=== PATIENT | female | born 1940 | race Caucasian/White ===

== ENCOUNTER 2016-08-23 09:13 | Outpatient (CLI) | payer MEDICARE | END 2016-08-23 10:52 | LOC: D.MAMMO 09:13 | DX: Z12.31 Encounter for screening mammogram for malignant neoplasm of breast (principal) ==

== ENCOUNTER → 2018-06-08 09:06 | Outpatient (CLI) | payer MEDICARE ==
[~2018-06-08 09:06] MED LIST: ASPIRIN81 MG PO; COZAAR25 MG PO; ELIQUIS5 MG PO; HYDROCHLOROTH12.5 M1 PO; PROTONIX40 MG PO; SINGULAIR10 MG PO
[2018-06-09 12:54] VITALS: BMI 32.8
== END | disposition home or self-care (01) ==
LOC: D.CT 09:06
PROVIDERS: ATTEND Internal Medicine Gastroenterology
DX: R10.9 Unspecified abdominal pain (principal); K62.5 Hemorrhage of anus and rectum

== ENCOUNTER 2018-06-08 13:34 | Inpatient (IN) | payer MEDICARE ==
[~2018-06-08] VITALS: Ht 156.2 cm; Wt 80.1 kg
[2018-06-08] VITALS (11 sets, daily range): BP systolic 139–179; BP diastolic 52–88; BMI 33.7
[2018-06-08] MEDS ORDERED: ASPIRIN81 MG PO (13:42)
[2018-06-08] MEDS ORDERED: COZAAR25 MG PO (13:42)
[2018-06-08] MEDS ORDERED: HYDROCHLOROTH12.5 M1 PO (13:43)
[2018-06-08] MEDS ORDERED: SINGULAIR10 MG PO (13:43)
[2018-06-08 14:33] LABS: BASOPHILS 0.3 % (0-2); EOSINOPHILS 4.2 % (0-7); HEMATOCRIT 41.1 % (36.0-48.0); HEMOGLOBIN 13.2 g/dL (12-16); IMMATURE GRANULOCYTES 0.3 % (0-5); LYMPHOCYTES 24.4 % (15-50); MCHC 32.1 g/dL (31.0-37.0); MCV 81.1 fL (80.0-100.0); MEAN PLATELET VOLUME 10.7 fL (7.4-10.4); MONOCYTES 5.7 % (2-11); NEUTROPHILS 65.1 % (40-80); PLATELET COUNT 211 10x3/uL (130-400); RBC 5.07 10x6/uL (4.00-5.40); RDW 14.4 % (11.5-14.5); WBC 6.1 10x3/uL (4.8-10.8)
[2018-06-08 14:45] LABS: INR 0.96 (0.85-1.17); PROTIME 12.3 SECONDS (11.6-15.0)
[2018-06-08 14:46] LABS: APTT 27.3 SECONDS (22.8-39.4)
[2018-06-08 14:47] LABS: D-DIMER-QUANTITATIVE 1.42 ug/mLFEU (0.20-0.54)
[2018-06-08 14:48] LABS: ALBUMIN 3.9 g/dL (3.4-5.0); BILIRUBIN - TOTAL 0.34 mg/dL (0.2-1.3); CALCIUM 8.9 mg/dL (8.5-10.1); CARBON DIOXIDE 29.3 mmol/L (21.0-32.0); CREATININE - SERUM 1.2 mg/dL (0.6-1.3); POTASSIUM - SERUM 3.3 mmol/L (3.5-5.1); PROTEIN - SERUM 7.6 g/dL (6.4-8.2)
--- NOTE | 2018-06-08 15:57 | MORECARE ---
CASE MANAGEMENT DISCHARGE SUMMARY PATIENT: CAMILO OVALLES UNIT: [id number] ADM DATE: 06/08/18 AGE: 77 : 41 SEX: F ROOM/BED: D.E10 AUTHOR: KELLY DAMON PHYSICIAN: REFERRING PHYSICIAN: CARI CONTRERAS MD DATE OF SERVICE: 06/08/18 Discharge Plan Patient Name: CAMILO OVALLES [facility] [facility] 1940 Planned Disposition: Home Anticipated Discharge Date: 06/10/18 Discharge Date: Expected LOS: 2 Initial Reviewer: [email or web address] Initial Review Date: 06/08/2018 Generated: 06/08/18 4:57 pm Patient Name: CAMILO OVALLES Page [id number] at 1557 All edits/amendments must be made on the electronic document DICTATION DATE: 06/08/181556 DIAMOND SIZER AND SORTER: ALVAREZ 06/08/181556 RPT#: [id number] DC DATE: STATUS: ADM IN [facility] [address] [place] [address] END OF REPORT
--- NOTE | 2018-06-08 16:04 | MORECARE ---
CASE MANAGEMENT DISCHARGE SUMMARY PATIENT: CAMILO OVALLES UNIT: [id number] ADM DATE: 06/08/18 AGE: 77 : 41 SEX: F ROOM/BED: D.2311 AUTHOR: KELLY DAMON PHYSICIAN: REFERRING PHYSICIAN: CARI CONTRERAS MD DATE OF SERVICE: 06/08/18 Discharge Plan Patient Name: CAMILO OVALLES Facility: [facility]:[place] : 1940 Planned Disposition: Home Anticipated Discharge Date: 06/10/18 Discharge Date: Expected LOS: 2 Initial Reviewer: [email or web address] Initial Review Date: 06/08/2018 Generated: 06/08/18 5:04 pm DCP- Discharge Planning Updated by [email or web address]: Zohreh Bowling on 06/08/18 3:[address] Patient Name: CAMILO OVALLES Admission Status: ER Accout number: [id number] Admission Date: 06-08-2018 : 1940 Admission Diagnosis: Attending: CARI CONTRERAS Current LOS: 1 Anticipated DC Date: 06-10-2018 Planned Disposition: Home Primary Insurance: MEDICARE A & B Discharge Planning Comments: CM met with patient to complete initial dc planning assessment. CM educated patient on the CM role and verbal consent given by patient to complete assessment. Patient lives at home alone independently. At discharge patient plans to return home alone and feels this is a safe discharge. CM discussed availability of home health, rehab services, and medical equipment. Patient denied known discharge needs at this time. CM will continue to follow and will assist as needed with dc plans/needs. Cylinder Press Feeder: Zohreh Bowling RN, [facility] DCPIA - Discharge Planning Initial Assessment Updated by [email or web address]: Zohreh Bowling on 06/08/18 3:59 pm * Is the patient Alert and Oriented? Yes * How many steps to enter\exit or inside your home? 11 * PCP Dr. Shafer * Preadmission Environment Home Alone * ADLs Independent * Equipment None * List name and contact numbers for known caregivers / representatives who currently or will assist patient after discharge: Sukhwinder Davidmode ramires A - [phone] Winnie Pettit [facility] - [phone] * Verbal permission to speak to the caregivers and representatives has been obtained from the patient. Yes * Community resources currently utilized None * Additional services required to return to the preadmission environment? No * Can the patient safely return to the preadmission environment? Yes * Has this patient been hospitalized within the prior 30 days at any hospital? No Last DP export: 06/08/18 2:57 p Patient Name: CAMILO OVALLES Page [phone] at 1604 All edits/amendments must be made on the electronic document DICTATION DATE: 06/08/18 1604 CORPORATE BOND TRADER: ALVAREZ 06/08/18 1604 RPT#: [id number] DC DATE: STATUS: ADM IN [facility] [address] [place] [address] END OF REPORT
--- NOTE | 2018-06-08 17:00 | NUR ---
PATIENT RECEIVED FROM ER VIA WHEELCHAIR, AMBULATORY TO BED, ALERT AND ORIENTED X 4, NO SOB, NO COMPLAINTS, WAS AT WORK WHEN TOLD TO REPORT TO ER DUE TO RESULTS OF CTA SHOWING BILATERAL LOWER LOBE PE'S. STATES HAS HAD NO SYMPTOMS. HAD COLONOSCOPY LAST FRIDAY AND DR. GIBBS HAD ORDERED CTA DUE TO NOT BEING ABLE TO SEE EVERYTHING SHE NEEDED DURING THE COLONOSCOPY. IV INFUSING TO LEFT HAND NS AT 75 CC/HR WITH NO S/S OF INFILTRATION. VSS. HEAD TO TOE ASSESSMENT COMPLETED.
--- NOTE | 2018-06-08 17:20 | NUR ---
DR. GIBBS AT ROOM UPDATED AND EXAMINES PATIENT.
--- NOTE | 2018-06-08 17:40 | NUR ---
PATIENT GIVEN DINNER TRAY. VSS.
--- NOTE | 2018-06-08 17:48 | NUR ---
DR. CONTRERAS AT ROOM UPDATED AND EXAMINES PATIENT.
--- NOTE | 2018-06-08 18:18 | NUR ---
PATIENT SITTING ON SIDE OF BED TALKING ON CELL PHONE. VSS. ATE 100% OF DINNER.
--- NOTE | 2018-06-08 18:36 | NUR ---
PATIENT UP TO BEDSIDE COMMODE.
--- NOTE | 2018-06-08 20:41 | NUR ---
PT OOB TO BEDSIDE COMMODE, VOID 250ML CLEAR YELLOW URINE
--- NOTE | 2018-06-08 21:30 | NUR ---
DAUGHTER AT BEDSIDE
[2018-06-09] VITALS (14 sets, daily range): BP systolic 126–157; BP diastolic 52–81; Ht 156.2 cm; Wt 80.1 kg
[2018-06-09 05:05] LABS: BASOPHILS 0.7 % (0-2); EOSINOPHILS 5.8 % (0-7); HEMATOCRIT 37.6 % (36.0-48.0); IMMATURE GRANULOCYTES 0.7 % (0-5); LYMPHOCYTES 37.3 % (15-50); MCH 25.8 pg (26.0-34.0); MCHC 31.9 g/dL (31.0-37.0); MCV 80.7 fL (80.0-100.0); MEAN PLATELET VOLUME 10.9 fL (7.4-10.4); MONOCYTES 7.2 % (2-11); NEUTROPHILS 48.3 % (40-80); PLATELET COUNT 189 10x3/uL (130-400); RBC 4.66 10x6/uL (4.00-5.40); RDW 14.2 % (11.5-14.5); WBC 5.5 10x3/uL (4.8-10.8)
[2018-06-09 05:32] LABS: ANION GAP 13.9 mmol/L (8-16); BILIRUBIN - TOTAL 0.22 mg/dL (0.2-1.3); CALCIUM 8.1 mg/dL (8.5-10.1); CARBON DIOXIDE 24.4 mmol/L (21.0-32.0); CREATININE - SERUM 0.9 mg/dL (0.6-1.3); MAGNESIUM - SERUM 1.7 mg/dL (1.8-2.4); POTASSIUM - SERUM 3.3 mmol/L (3.5-5.1); PROTEIN - SERUM 6.2 g/dL (6.4-8.2)
[2018-06-09 05:33] LABS: ALBUMIN 2.9 g/dL (3.4-5.0)
--- NOTE | 2018-06-09 07:15 | NUR ---
REPORT RECEIVED. ASSESSMENT COMPLETE PER FLOW SHEET. VSS. NO NEW CAHNGES WILL CONTINUE TO MONITOR
--- NOTE | 2018-06-09 09:39 | NUR ---
DR DYE AT BEDSIDE. GIVEN UDPATE
--- NOTE | 2018-06-09 14:15 | NUR ---
KOMAL LEVY CALLED ROOM [id number]
--- NOTE | 2018-06-09 14:30 | NUR ---
ATTEMPT TO CALL REPORT. STATED ROOM WAS NOT READY
--- NOTE | 2018-06-09 16:15 | NUR ---
ROOM STILL NOT READY AT THIS TIME. WILL CALL BACK IN 15 MINUTES
--- NOTE | 2018-06-09 16:38 | NUR ---
DR MORSE AT BEDSIDE. GIVEN UPDATE
--- NOTE | 2018-06-09 17:48 | NUR ---
RECEIVED PT FROM ICU ACCOMPANIED BY HOSPITAL STAFF VIA WHEELCHAIR. PT ALERT AND ORIENTED. UP AD SCOTT. ALLERGIES TO SULFA, TURKEY, SHRIMP. PT ADMITTED WITH BILATERAL PE, RIGHT RENAL LESION, ADRENAL MASS AND NODULE IN SIGMOID COLON. POSSIBLE BIOPSY. IV TO LEFT FOREARM, NS INFUSING @ 75. SITE PATENT WITHOUT REDNESS OR SWELLING. FAMILY AT BEDSIDE. PT DENIES ANYTHING FURTHER AT THIS TIME. CALL LIGHT IN REACH. WILL CONTINUE TO MONITOR.
--- NOTE | 2018-06-09 18:48 | NUR ---
PT TAKING SHOWER. NO C/O PAIN. NO S/S OF ACUTE DISTRESS NOTED. PT DENIES ANYTHING FURTHER AT THIS TIME. CALL LIGHT IN REACH. FAMILY AT BEDSIDE. WILL CONTINUE TO MONITOR.
--- NOTE | 2018-06-09 19:00 | NUR ---
PT ALERT AND ORIENTED. DAUGHTER AT BEDSIDE. NO COMPLAINTS OF PAIN. LEFT FOREARM IV INFUSING AT 75. CPOC.
[2018-06-10] VITALS (11 sets, daily range): BP systolic 129–190; BP diastolic 59–82
--- NOTE | 2018-06-10 04:08 | NUR ---
I have reviewed this patient and I concur with the Shift Assessment completed by the Licensed Practical Nurse today this shift.
[2018-06-10 05:00] LABS: BASOPHILS 0.2 % (0-2); EOSINOPHILS 5.6 % (0-7); HEMATOCRIT 38.1 % (36.0-48.0); HEMOGLOBIN 12.1 g/dL (12-16); IMMATURE GRANULOCYTES 0.8 % (0-5); LYMPHOCYTES 39.1 % (15-50); MCH 25.7 pg (26.0-34.0); MCHC 31.8 g/dL (31.0-37.0); MCV 80.9 fL (80.0-100.0); MEAN PLATELET VOLUME 10.8 fL (7.4-10.4); MONOCYTES 6.2 % (2-11); NEUTROPHILS 48.1 % (40-80); PLATELET COUNT 205 10x3/uL (130-400); RBC 4.71 10x6/uL (4.00-5.40); RDW 14.4 % (11.5-14.5); WBC 5.2 10x3/uL (4.8-10.8)
[2018-06-10 05:30] LABS: ALBUMIN 3.2 g/dL (3.4-5.0); ALKALINE PHOSPHATASE 80 U/L (46-116); ALT (SGPT) 38 U/L (10-68); BILIRUBIN - TOTAL 0.24 mg/dL (0.2-1.3); CALC OSMOLALITY 281 mosm/kg (275-300); CALCIUM 8.3 mg/dL (8.5-10.1); CARBON DIOXIDE 24.3 mmol/L (21.0-32.0); CHLORIDE - SERUM 107 mmol/L (98-107); CREATININE - SERUM 0.7 mg/dL (0.6-1.3); GLUCOSE 102 mg/dL (74-106); MAGNESIUM - SERUM 2.1 mg/dL (1.8-2.4); POTASSIUM - SERUM 3.4 mmol/L (3.5-5.1); PROTEIN - SERUM 6.4 g/dL (6.4-8.2); SODIUM 142 mmol/L (136-145); eGFR NON AFRICAN AMERICAN 86 mL/min (90-120)
[2018-06-10 05:31] LABS: UREA NITROGEN 10 mg/dL (7-18)
[2018-06-10 07:30] LABS: FOLATE (FOLIC ACID) - SERUM >20.0 ng/mL (>3.0)
--- NOTE | 2018-06-10 07:30 | NUR ---
PT RESTING IN BED WITH EYES CLOSED. RESPIRATIONS ARE EVEN AND UNLABORED. PT IS EASILY AROUSED WITH VERBAL STIMULATION. PT MADISON PRESENCE OF PAIN AT THIS TIME. PT DENIES PRESENCE OF N/V. IV INFUSING TO LEFT FOREARM WITHOUT DIFFICULTY. IV INSERTION SITE WITHOUT REDNESS AND PT DENIES DISCOMFORT. BED IS IN THE LOWEST POSITION. CALL LIGHT AND BEDSIDE TABLE ARE WITHIN REACH. PT DENIES FURTHER NEEDS AT THIS TIME. WILL CONT TO MONITOR.
[2018-06-10 08:01] LABS: INR 1.02 (0.85-1.17); PROTIME 12.9 SECONDS (11.6-15.0)
[2018-06-10 08:02] LABS: APTT 38.3 SECONDS (22.8-39.4)
--- NOTE | 2018-06-10 08:04 | NUR ---
PT PLACED NPO PER ORDER FOR PROCEDURE. PT EDUCATED ON MEANING ON NPO. PT VERBALIZES UNDERSTANDING. PT DENIES FURTHER NEEDS. BED IS IN THE LOWEST POSITION. CALL LIGHT AND BEDSIDE TABLE ARE WITHIN REACH. WILL CONT TO MONITOR.
--- NOTE | 2018-06-10 09:42 | NUR ---
CONSENTS COVERED AND SIGNED FOR CT GUIDED PROCEDURE AND CONSENTS COVERED AND SIGNED FOR FLEX. SIGMOIDOSCOPY WITH DR GIBBS ON 06/11/2018. PT DENIES FURTHER QUESTIONS AND/OR CONCERNS AT THIS TIME. SIGNED CONSENTS PLACED IN PT CHART.
--- NOTE | 2018-06-10 14:29 | NUR ---
PT OFF FLOOR VIA BED FOR PROCEDURE.
--- NOTE | 2018-06-10 15:36 | NUR ---
PT RETURNED TO ROOM VIA BED FROM PROCEDURE. PT IS AAO X4. FAMILY IS AT BEDSIDE. DRESSING NOTED TO RIGHT FLANK/BACK THAT IS C/D/I. PT DENIES PRESENCE OF PAIN. PT DENIES PRESENCE OF N/V. SEE FLOWSHEET FOR VITALS. PT EDUCATED ON BEDREST X 2 HOURS. PT VERBALIZES UNDERSTANDING. BED IS IN THE LOWEST POSITION. CALL LIGHT AND BEDSIDE TABLE ARE WITHIN REACH. WILL CONT TO MONITOR.
[2018-06-11 04:00] VITALS: BP 157/67
--- NOTE | 2018-06-11 04:46 | NUR ---
PT IN BED IN LOW FOWLERS POSITION. REPIRATIONS EVEN AND UNLABORED. VITAL SIGNS STABLE AND AFEBRILE. NO VISUAL CUES OF DISTRESS NOTED. DENIES ANY OTHER NEEDS AT THIS TIME. BED LOW, SIDE RAILS UP X2. CALL LIGHT IN REACH. WILL CONTINUE TO MONITOR.
[2018-06-11 05:01] LABS: BASOPHILS 0.5 % (0-2); EOSINOPHILS 3.7 % (0-7); IMMATURE GRANULOCYTES 0.2 % (0-5); MCH 25.3 pg (26.0-34.0); MCHC 31.6 g/dL (31.0-37.0); MCV 80.2 fL (80.0-100.0); MEAN PLATELET VOLUME 10.2 fL (7.4-10.4); NEUTROPHILS 66.6 % (40-80); PLATELET COUNT 185 10x3/uL (130-400); RBC 4.74 10x6/uL (4.00-5.40); RDW 14.3 % (11.5-14.5)
[2018-06-11 05:05] LABS: WBC 6.6 10x3/uL (4.8-10.8)
[2018-06-11 05:18] LABS: ALBUMIN 3.1 g/dL (3.4-5.0); ALKALINE PHOSPHATASE 82 U/L (46-116); ALT (SGPT) 38 U/L (10-68); BILIRUBIN - TOTAL 0.37 mg/dL (0.2-1.3); CALC OSMOLALITY 276 mosm/kg (275-300); CALCIUM 8.2 mg/dL (8.5-10.1); CARBON DIOXIDE 27.4 mmol/L (21.0-32.0); CHLORIDE - SERUM 106 mmol/L (98-107); CREATININE - SERUM 0.7 mg/dL (0.6-1.3); GLUCOSE 100 mg/dL (74-106); MAGNESIUM - SERUM 2.2 mg/dL (1.8-2.4); POTASSIUM - SERUM 3.5 mmol/L (3.5-5.1); PROTEIN - SERUM 6.3 g/dL (6.4-8.2); SODIUM 140 mmol/L (136-145); UREA NITROGEN 8 mg/dL (7-18); eGFR NON AFRICAN AMERICAN 86 mL/min (90-120)
--- NOTE | 2018-06-11 07:40 | NUR ---
PT IS SITTING UP ON SIDE OF BED. RESPIRATIONS ARE EVEN AND UNLABORED. PT DENIES PRESENCE OF PAIN AND/OR N/V AT THIS TIME. BED IS IN THE LOWEST POSITION. CALL LIGHT AND BEDSIDE TABLE ARE WITHIN REACH. ELECTROLYTE PROTOCOL ENFORCED. SEE EMAR. PT IS UNABLE TO TOLERATE K+ INFUSION @ 100ML/HR. SLOWED INFUSION RATE TO 50ML/HR. PT IS TOLERATING WELL AT THIS TIME. PT DENIES FURTHER NEEDS. WILL CONT TO MONITOR.
--- NOTE | 2018-06-11 08:45 | NUR ---
PT RETURNED TO ROOM FROM PROCEDURE. PT IS AAO X 4. PT DENIES PRESENCE OF PAIN. SEE FLOWSHEET FOR VITALS. BED IS IN THE LOWEST POSITION. CALL LIGHT AND BEDSIDE TABLE ARE WITHIN REACH. PT DENIES FURTHER NEEDS. WILL CONT TO MONITOR.
[2018-06-11 10:11] VITALS: BP 139/62
[2018-06-11 11:17] LABS: LUPUS - INTERPRETATION Comment: (()); LUPUS - THROMBIN TIME 22.6 sec (0.0-23.0); LUPUS - dRVVT 33.7 sec (0.0-47.0); PTT-LA 43.9 sec (0.0-51.9)
--- NOTE | 2018-06-11 12:20 | NUR ---
PT IS OFF FLOOR VIA WHEELCHAIR FOR IMAGING.
--- NOTE | 2018-06-11 13:02 | NUR ---
NUTRITION F/U CHART REVIEWED, PT CURRENTLY OOR FOR PROCEDURE. NPO AT THIS TIME. WILL PROVIDE DIET WHEN RESUMED, HONOR FOOD PREFERENCES. RD FOLLOWING
--- NOTE | 2018-06-11 16:44 | NUR ---
PIV REMOVED PER PT REQUEST. CATHETER TIP INTACT. DRESSING APPLIED. PT REQUESTS TO WAIT ON RE-SITING PIV AT THIS TIME.
--- NOTE | 2018-06-11 16:45 | NUR ---
CORBIN EMERSON APRN NOTIFIED OF PT REQUEST TO NOT RESITE IV. ORDERS RECD TO CHECK K+ LEVEL PER PROTOCOL FROM COMPLETION OF LAST K+ RIDER INFUSION. ORDERS PLACED.
[2018-06-11 17:34] VITALS: BP 175/77
--- NOTE | 2018-06-11 18:53 | NUR ---
DR ANTONIO AT BED SIDE WITH CONCERNS RELATED TO PT BLOOD PRESSURE AND BLOOD PRESSURE MEDICATION. BEDSIDE BLOODPRESSURE AT THIS TIME WAS 170/72 IN THE RIGHT ARM LAYING POSITION. PAGE PLACED TO JAYCEE GARCIA TO NOTIFY.
--- NOTE | 2018-06-11 19:40 | NUR ---
ALERT AND AWAKE DRSG REMOVED FROM BACK ON RT SIDE VERY LITTLE OLD DRAINAGE NOTED LCTA AND PT DENIES PAIN PULSES INTACT SKIN WARM AND DRY FAMILY IS PRESENT BED LOW WITH CALL LIGHT IN PLACE
[2018-06-11 20:00] VITALS: BP 151/70
--- NOTE | 2018-06-11 22:27 | NUR ---
NOTED POTASIUM AT 3.4 SO 40 MEQ OF KCL GIVEN NOW AND WILL RECHECK K+ WITH AM LAB
[2018-06-12] VITALS: BP 125/54
--- NOTE | 2018-06-12 03:15 | NUR ---
I have reviewed this patient and I concur with the Shift Assessment completed by the Licensed Practical Nurse today this shift.
[2018-06-12 04:00] VITALS: BP 136/59
[2018-06-12 05:08] LABS: BASOPHILS 0.4 % (0-2); EOSINOPHILS 5.7 % (0-7); HEMATOCRIT 36.7 % (36.0-48.0); HEMOGLOBIN 11.7 g/dL (12-16); IMMATURE GRANULOCYTES 0.4 % (0-5); LYMPHOCYTES 30.5 % (15-50); MCH 25.5 pg (26.0-34.0); MCHC 31.9 g/dL (31.0-37.0); MCV 80.1 fL (80.0-100.0); MEAN PLATELET VOLUME 10.4 fL (7.4-10.4); MONOCYTES 8.3 % (2-11); NEUTROPHILS 54.7 % (40-80); PLATELET COUNT 184 10x3/uL (130-400); RBC 4.58 10x6/uL (4.00-5.40); RDW 14.4 % (11.5-14.5); WBC 5.6 10x3/uL (4.8-10.8)
[2018-06-12 05:17] LABS: ALBUMIN 3.1 g/dL (3.4-5.0); ANION GAP 14.1 mmol/L (8-16); BILIRUBIN - TOTAL 0.18 mg/dL (0.2-1.3); CALCIUM 8.1 mg/dL (8.5-10.1); CARBON DIOXIDE 25.6 mmol/L (21.0-32.0); CREATININE - SERUM 0.8 mg/dL (0.6-1.3); MAGNESIUM - SERUM 2.3 mg/dL (1.8-2.4); POTASSIUM - SERUM 3.7 mmol/L (3.5-5.1); PROTEIN - SERUM 6.2 g/dL (6.4-8.2)
--- NOTE | 2018-06-12 07:11 | NUR ---
AAOX4. ON ROOM AIR, NO IV ACCESS, EVEN UNLABORED BREATHING, DENIES ANY CURRENT NEEDS OR DISCOMFORTS, BED LOWERED AND LOCKED, CALL LIGHT WITHIN REACH. CPOC
[2018-06-12 09:18] VITALS: BP 173/76
[2018-06-12 13:03] VITALS: BP 170/81
[2018-06-12] MEDS ORDERED: PROTONIX40 MG PO (14:28)
[2018-06-12] MEDS ORDERED: ELIQUIS5 MG PO (14:29)
--- NOTE | 2018-06-12 15:35 | MORECARE ---
CASE MANAGEMENT DISCHARGE SUMMARY PATIENT: CAMILO OVALLES UNIT: [id number] ADM DATE: 06/08/18 AGE: 77 : 41 SEX: F ROOM/BED: D.2240 AUTHOR: KELLY DAMON PHYSICIAN: REFERRING PHYSICIAN: CARI CONTRERAS MD DATE OF SERVICE: 06/12/18 Discharge Plan Patient Name: CAMILO OVALLES Facility: [facility]:[place] : 1940 Planned Disposition: Home Anticipated Discharge Date: 06/10/18 Discharge Date: Expected LOS: 2 Initial Reviewer: [email or web address] Initial Review Date: 06/08/2018 Generated: 06/12/18 4:35 pm Comments DCP- Discharge Planning Updated by [email or web address]: Marlena Juliana on 06/12/18 2:[address] Received order for discharge. Eloquis coupons given, she may be unable to use these with her insurance and I informed her of this. She is going to check with Dr. Shafer's office and Dr. Lance's office for coupons. Dr. Lance's office is closed at this time. She declines need for home health or DME. Family is here to take her home. No other needs identified. CM will continue to follow and assist with discharge planning/needs. DCP- Discharge Planning Updated by [email or web address]: Zohreh Bowling on 06/08/18 3:[address] Patient Name: CAMILO OVALLES Admission Status: ER Accout number: [id number] Admission Date: 06-08-2018 : 1940 Admission Diagnosis: Attending: CARI CONTRERAS Current LOS: 1 Anticipated DC Date: 06-10-2018 Planned Disposition: Home Primary Insurance: MEDICARE A & B Discharge Planning Comments: CM met with patient to complete initial dc planning assessment. CM educated patient on the CM role and verbal consent given by patient to complete assessment. Patient lives at home alone independently. At discharge patient plans to return home alone and feels this is a safe discharge. CM discussed availability of home health, rehab services, and medical equipment. Patient denied known discharge needs at this time. CM will continue to follow and will assist as needed with dc plans/needs. Medical Sales Associate: Zohreh Bowling RN, [facility] DCPIA - Discharge Planning Initial Assessment Updated by [email or web address]: Zohreh Bowling on 06/08/18 3:59 pm * Is the patient Alert and Oriented? Yes * How many steps to enter\exit or inside your home? 11 * PCP Dr. Shafer * Preadmission Environment Home Alone * ADLs Independent * Equipment None * List name and contact numbers for known caregivers / representatives who currently or will assist patient after discharge: Sukhwinder Zamora - son A - [phone] Winnie Pettit - dtr - [phone] * Verbal permission to speak to the caregivers and representatives has been obtained from the patient. Yes * Community resources currently utilized None * Additional services required to return to the preadmission environment? No * Can the patient safely return to the preadmission environment? Yes * Has this patient been hospitalized within the prior 30 days at any hospital? No Coverage Notice Reviewer: [email or web address] Higinio Andrews Notice Issued Date-Time: 06/12/2018 15:27 Notice Type: IM Discharge Notice Notice Delivered To: Patient Relationship to Patient: Self Cash Clerk Name: Delivery Method: HAND - Hand Delivered Soledad Days: Prior Verbal Notification: Recipient Understood Notice: Yes Recipient Signature: Yes Med Rec Note Co-signed by Attending: Coverage Notice Comment: IMM explained, signed, given, copy placed in MR Last DP export: 06/08/18 3:04 p Patient Name: CAMILO OVALLES Page [phone] at 1535 All edits/amendments must be made on the electronic document DICTATION DATE: 06/12/18 153 HAND STRIPER: ALVAREZ 06/12/18 1535 RPT#: [id number] DC DATE: STATUS: ADM IN [facility] [address] [place] [address] END OF REPORT
--- NOTE | 2018-06-12 16:47 | NUR ---
DISCHARGE INSTRUCTIONS GIVEN. VERBALIZES UNDERSTANDING, DENIES ANY CURRENT QUESTIONS OR NEEDS. REVIEWED MEDICATION CHANGES AND FOLLOW UP APPOINTMENTS.
[2018-06-15 18:07] LABS: FACTOR II DNA ANALYSIS Negative (())
--- NOTE | 2018-06-16 07:04 | MORECARE ---
CASE MANAGEMENT DISCHARGE SUMMARY PATIENT: CAMILO OVALLES UNIT: [id number] ADM DATE: 06/08/18 AGE: 77 : 41 SEX: F ROOM/BED: D.2240 AUTHOR: KELLY DAMON PHYSICIAN: REFERRING PHYSICIAN: CARI CONTRERAS MD DATE OF SERVICE: 06/16/18 Discharge Plan Patient Name: CAMILO OVALLES Facility: [facility]:[place] : 1940 Planned Disposition: Home Anticipated Discharge Date: 06/10/18 Discharge Date: 06/12/2018 Expected LOS: 2 Initial Reviewer: [email or web address] Initial Review Date: 06/08/2018 Generated: 06/16/18 8:03 am Comments DCP- Discharge Planning Updated by [email or web address]: Marlena Juliana on 06/12/18 2:[address] Received order for discharge. Eloquis coupons given, she may be unable to use these with her insurance and I informed her of this. She is going to check with Dr. Shafer's office and Dr. Lance's office for coupons. Dr. Lance's office is closed at this time. She declines need for home health or DME. Family is here to take her home. No other needs identified. CM will continue to follow and assist with discharge planning/needs. DCP- Discharge Planning Updated by [id number]: Zohreh Bowling on 06/08/18 3:[address] Patient Name: CAMILO OVALLES Admission Status: ER Accout number: [id number] Admission Date: 06-08-2018 : 1940 Admission Diagnosis: Attending: CARI CONTRERAS Current LOS: 1 Anticipated DC Date: 06-10-2018 Planned Disposition: Home Primary Insurance: MEDICARE A & B Discharge Planning Comments: CM met with patient to complete initial dc planning assessment. CM educated patient on the CM role and verbal consent given by patient to complete assessment. Patient lives at home alone independently. At discharge patient plans to return home alone and feels this is a safe discharge. CM discussed availability of home health, rehab services, and medical equipment. Patient denied known discharge needs at this time. CM will continue to follow and will assist as needed with dc plans/needs. Commercial Green Retrofit Architect: Zohreh Bowling RN, [facility] DCPIA - Discharge Planning Initial Assessment Updated by [email or web address]: Zohreh Bowling on 06/08/18 3:59 pm * Is the patient Alert and Oriented? Yes * How many steps to enter\exit or inside your home? 11 * PCP Dr. Shafer * Preadmission Environment Home Alone * ADLs Independent * Equipment None * List name and contact numbers for known caregivers / representatives who currently or will assist patient after discharge: Sukhwinder Zamora - son A - [phone] Winnie Pettit - dtr - [phone] * Verbal permission to speak to the caregivers and representatives has been obtained from the patient. Yes * Community resources currently utilized None * Additional services required to return to the preadmission environment? No * Can the patient safely return to the preadmission environment? Yes * Has this patient been hospitalized within the prior 30 days at any hospital? No Coverage Notice Reviewer: [email or web address] Higinio Andrews Notice Issued Date-Time: 06/12/2018 15:27 Notice Type: IM Discharge Notice Notice Delivered To: Patient Relationship to Patient: Self Cone Worker Name: Delivery Method: HAND - Hand Delivered Soledad Days: Prior Verbal Notification: Recipient Understood Notice: Yes Recipient Signature: Yes Med Rec Note Co-signed by Attending: Coverage Notice Comment: IMM explained, signed, given, copy placed in MR Last DP export: 06/12/18 2:35 p Patient Name: CAMILO OVALLES Page 41521 at 0704 All edits/amendments must be made on the electronic document DICTATION DATE: 06/16/18702 UTILITY WORKER PRODUCTION: ALVAREZ 06/16/18702 RPT#: [id number] DC DATE:06/12/18 STATUS: DIS IN [facility] [address] [place] [address] END OF REPORT
== END 2018-06-12 17:29 | disposition home or self-care (01) | DRG 176 ==
LOC: D.ER 13:34 → D.ICU 14:35 → D.MS 14:35 → D.EDHOLD 14:35 → D.ICU 16:04 → D.MS 06-09 17:40
PROVIDERS: Emergency Medicine; General Practice; Internal Medicine Gastroenterology; Internal Medicine Hematology & Oncology; ADMIT Family Medicine; ATTEND Family Medicine
PROC: 0WBH3ZX Excision of Retroperitoneum, Percutaneous Approach, Diagnostic (ICD-10-PCS; 2018-06-10)
PROC: 0DBP8ZX Excision of Rectum, Via Natural or Artificial Opening Endoscopic, Diagnostic (ICD-10-PCS; principal; 2018-06-11 07:00)
DX: I26.99 Other pulmonary embolism without acute cor pulmonale (principal); I10 Essential (primary) hypertension; E78.5 Hyperlipidemia, unspecified; N20.0 Calculus of kidney; K80.20 Calculus of gallbladder without cholecystitis without obstruction

== ENCOUNTER → 2018-07-06 13:55 | Outpatient (CLI) | payer MEDICARE ==
[2018-06-09 12:54] VITALS: BMI 32.8
[2018-07-06 14:43] LABS: BASOPHILS 0.5 % (0-2); EOSINOPHILS 4.5 % (0-7); HEMATOCRIT 39.8 % (36.0-48.0); HEMOGLOBIN 13.1 g/dL (12-16); IMMATURE GRANULOCYTES 0.5 % (0-5); LYMPHOCYTES 19.2 % (15-50); MCH 26.3 pg (26.0-34.0); MCHC 32.9 g/dL (31.0-37.0); MCV 79.8 fL (80.0-100.0); MEAN PLATELET VOLUME 10.3 fL (7.4-10.4); NEUTROPHILS 70.3 % (40-80); RBC 4.99 10x6/uL (4.00-5.40); RDW 14.5 % (11.5-14.5); WBC 7.3 10x3/uL (4.8-10.8)
[2018-07-06 14:47] LABS: PLATELET COUNT 223 10x3/uL (130-400)
[2018-07-07 11:00] LABS: ACLA - IGG AB <9 GPL U/mL (0-14); ACLA - IGM AB <9 MPL U/mL (0-12)
[2018-07-08 10:16] LABS: ANTITHROMBIN III ACTIVITY 124 % (75-135); ANTITHROMBIN III ANTIGEN 90 % (72-124)
[2018-07-08 15:11] LABS: PROTEIN S - FREE 136 % (57-157); PROTEIN S - FUNCTIONAL 116 % (63-140); PROTEIN S - TOTAL 107 % (60-150)
[2018-07-09 04:08] LABS: PROTEIN C - ANTIGEN 139 % (60-150); PROTEIN C - FUNCTIONAL 164 % (73-180)
== END | disposition home or self-care (01) ==
LOC: D.LAB 13:55
PROVIDERS: ATTEND Internal Medicine Hematology & Oncology
DX: I26.99 Other pulmonary embolism without acute cor pulmonale (principal); I10 Essential (primary) hypertension

== ENCOUNTER → 2018-09-04 10:56 | Outpatient (CLI) | payer MEDICARE ==
[2018-06-09 12:54] VITALS: BMI 32.8
== END | disposition home or self-care (01) ==
LOC: D.CT 10:56
PROVIDERS: ATTEND Family Medicine
DX: R05 Cough (principal); I26.99 Other pulmonary embolism without acute cor pulmonale

== ENCOUNTER 2020-05-24 19:00 | Outpatient (CLI) | payer MEDICARE ==
[2018-06-09 12:54] VITALS: BMI 32.8
== END 2020-05-24 23:59 | disposition home or self-care (01) ==
LOC: D.MAMMO 19:00
PROVIDERS: ATTEND Family Medicine
DX: Z12.31 Encounter for screening mammogram for malignant neoplasm of breast (principal)

== ENCOUNTER → 2020-06-06 08:44 | Outpatient (CLI) | payer MEDICARE ==
[2018-06-09 12:54] VITALS: BMI 32.8
[2020-06-06 10:30] LABS: ALBUMIN 3.8 g/dL (3.4-5.0); ANION GAP 10.1 mmol/L (8-16); BILIRUBIN - TOTAL 0.25 mg/dL (0.2-1.3); CALCIUM 9.8 mg/dL (8.5-10.1); CREATININE - SERUM 0.9 mg/dL (0.6-1.3); PROTEIN - SERUM 7.3 g/dL (6.4-8.2)
[2020-06-06 10:32] LABS: POTASSIUM - SERUM 4.1 mmol/L (3.5-5.1)
== END | disposition home or self-care (01) ==
LOC: D.CT 08:44
PROVIDERS: ATTEND Family Medicine
DX: R09.1 Pleurisy (principal)

== ENCOUNTER 2020-07-28 10:58 | Emergency (ER) | payer MEDICARE ==
[~2020-07-28] VITALS: Ht 156.2 cm; Wt 83.2 kg
[2020-07-28 11:03] VITALS: Ht 156.2 cm; Wt 83.2 kg
[2020-07-28 11:31] LABS: BASOPHILS 0.5 % (0-2); EOSINOPHILS 3.8 % (0-7); HEMATOCRIT 40.5 % (36.0-48.0); HEMOGLOBIN 12.8 g/dL (12-16); IMMATURE GRANULOCYTES 0.3 % (0-5); LYMPHOCYTE ABS# 1.45 10x3/uL (1.18-3.74); LYMPHOCYTES 23.2 % (15-50); MCH 26.4 pg (26.0-34.0); MCHC 31.6 g/dL (31.0-37.0); MCV 83.5 fL (80.0-100.0); MEAN PLATELET VOLUME 10.9 fL (7.4-10.4); NEUTROPHIL ABS# 4.08 10x3/uL (1.56-6.13); NEUTROPHILS 65.2 % (40-80); PLATELET COUNT 229 10x3/uL (130-400); RBC 4.85 10x6/uL (4.00-5.40); RDW 14.7 % (11.5-14.5); WBC 6.3 10x3/uL (4.8-10.8)
[2020-07-28 11:43] LABS: ANION GAP 13.6 mmol/L (8-16); APTT 29.8 SECONDS (22.8-39.4); CALCIUM 9.6 mg/dL (8.5-10.1); CARBON DIOXIDE 25.9 mmol/L (21.0-32.0); CREATININE - SERUM 0.8 mg/dL (0.6-1.3); INR 1.12 (0.85-1.17); POTASSIUM - SERUM 3.5 mmol/L (3.5-5.1); PROTIME 13.3 SECONDS (11.6-15.0)
[2020-07-28 11:49] LABS: BILIRUBIN - TOTAL 0.47 mg/dL (0.2-1.3); PROTEIN - SERUM 7.1 g/dL (6.4-8.2)
[2020-07-28] MEDS ORDERED: FLAGYL500 MG PO (14:44)
[2020-07-28] MEDS ORDERED: CIPRO500 MG PO (14:44)
[2020-07-28 15:00] VITALS: BP 156/70
== END 2020-07-28 15:03 | disposition home or self-care (01) ==
LOC: D.ER 10:58
PROVIDERS: Emergency Medicine
DX: K92.2 Gastrointestinal hemorrhage, unspecified (principal); R91.1 Solitary pulmonary nodule; I10 Essential (primary) hypertension; E78.5 Hyperlipidemia, unspecified